=== PATIENT | female | born 1980 | race Two or more races ===

== ENCOUNTER 2017-11-06 06:53 | Day surgery (SDC) | payer OTHER ==
[~2017-11-06] VITALS: Ht 157.5 cm; Wt 57.2 kg
== END 2017-11-06 12:55 | disposition home or self-care (01) ==
LOC: CIR.AMB 06:53 → RECOVERY 11:21 → EDSTATUS 11:43 → CIR.AMB 11:44
DX: N85.6 Intrauterine synechiae (principal)